=== PATIENT | male | born 1950 | race Caucasian/White ===

== ENCOUNTER 2018-11-01 20:02 | Emergency (ER) | payer OTHER, BC ==
[~2018-11-01] VITALS: Ht 182.9 cm; Wt 81.6 kg
[~2018-11-01 20:02] MED LIST: AMLO5TAB PO; BIOT1000 PO; BUPR200T1 PO; CHOL100037 PO; CLON2TAB PO; ELA25 PO; FOLI1TAB19 PO; HYDR1TAB76 PO; LACT10CA PO; LANS15EC28 PO; TADA5TAB PO; THIA100T25 PO
[2018-11-01 20:03] VITALS: BP 121/75
[2018-11-01 20:04] VITALS: BP 121/75
--- NOTE | 2018-11-01 20:05 | NUR ---
68 Y MALE BIBA AFTER HIS GF CALLED 911 BECAUSE THE PATIENT COULD NOT STAND UP. REPORTS DRINKING 1/2 BOTTLE OF JOSE ALBERTO TODAY. DENIES OTHER DRUG USE. STATES HE USUALLY DRINKS THIS MUCH. SPEECH IS CLEAR, NEURO INTACT. DENIES ANY PAIN. VSS AT THIS TIME. [id number]. BED IS DOWN, LOCKED, BED RAIL X 1, ERMD NOTIFIED. HX; HTN
--- NOTE | 2018-11-01 20:06 | NUR ---
DR PHIPPS AT BEDSIDE
[2018-11-01] MEDS ORDERED: NACL 0.9% 1,000 ML IV ONE (20:10)
[2018-11-01 20:29] LABS: BASOPHILS % (AUTO) 0.6 % (0.0-2.0); EOSINOPHILS % (AUTO) 1.2 % (0.0-4.0); HEMATOCRIT 38.2 % (36-52); HEMOGLOBIN 12.8 g/dL (12.0-18.0); LYMPHOCYTES % (AUTO) 40.6 % (20.5-51.1); MEAN CORPUSCULAR HEMOGLOBIN 34 pg (27-31); MEAN CORPUSCULAR HGB CONC 34 g/dL (33-37); MEAN CORPUSCULAR VOLUME 100.6 fL (80-94); MONOCYTES # (AUTO) 0.3 K/uL (0.8-1.0); MONOCYTES % (AUTO) 12.6 % (1.7-9.3); NEUTROPHILS # (AUTO) 1.1 K/uL (1.8-7.7); PLATELET COUNT (AUTO) 83 K/uL (140-450); RED CELL DISTRIBUTION WIDTH 16.9 % (11.6-13.7); WHITE BLOOD COUNT (AUTO) 2.5 K/uL (4.8-10.8)
--- NOTE | 2018-11-01 20:37 | NUR ---
XRAY AT BEDSIDE
[2018-11-01 20:39] LABS: ANION GAP 15.1 (8-16); CARBON DIOXIDE 27.3 mmol/L (21-32); CREATININE 0.7 mg/dL (0.7-1.3); POTASSIUM 3.4 mmol/L (3.5-5.1)
[2018-11-01 20:46] LABS: ALBUMIN 3.7 g/dL (3.4-5.0); TOTAL BILIRUBIN 0.7 mg/dL (0.0-1.0)
[2018-11-01 20:54] LABS: CREATINE KINASE MB 2.1 ng/mL (0-3.6)
--- NOTE | 2018-11-01 21:07 | NUR ---
REPORT GIVEN TO MARCIN PARKER
[2018-11-01 21:25] LABS: BARBITURATE, URINE NEG. ng/ml (NEG <=200); BENZODIAZEPINE, URINE NEG. ng/mL (NEG <=200); CANNABINOID, URINE NEG. ng/mL (NEG <=50); COCAINE, URINE NEG. ng/mL (NEG <=300); OPIATE, URINE NEG. ng/mL (NEG <=2000); PHENCYCLIDINE SCREEN,URINE NEG. ng/mL (NEG <=25)
--- NOTE | 2018-11-01 22:00 | NUR ---
PATIENT AAO, VSS.
--- NOTE | 2018-11-01 23:35 | NUR ---
PATIENT STATES HE DOES NOT HAVE A RIDE HOME.
--- NOTE | 2018-11-01 23:59 | NUR ---
PATIENT ELOPED AT THIS TIME. IV DISCONTINUED, AMB WITH STEADY GAIT.
== END 2018-11-01 23:59 | disposition home or self-care (01) ==
LOC: MED 20:02
DX: F10.129 Alcohol abuse with intoxication, unspecified (principal); R53.1 Weakness; R51 Headache; E11.9 Type 2 diabetes mellitus without complications; I10 Essential (primary) hypertension; Z79.899 Other long term (current) drug therapy; Z88.6 Allergy status to analgesic agent; Y90.8 Blood alcohol level of 240 mg/100 ml or more
CPT/HCPCS: 36415; 70450; 71045; 80053; 80305; 82550; 82553; 83690; 84484; 85025; 93005; 99284; G0482; J7030; Q0092